=== PATIENT | male | born 1980 | race African-American/Black ===

== ENCOUNTER 2020-04-09 12:20 | Observation (INO) | payer BC ==
[~2020-04-09] VITALS: Ht 182.9 cm; Wt 95.3 kg
[2020-04-09] MEDS ORDERED: PANTOPRAZOLE 40 MG 10ML VIAL IV NR (12:33)
[2020-04-09] MEDS ORDERED: SODIUM CHLORIDE 0.9% 1000ML 1,000 ML IV STA (13:05)
[2020-04-09] MEDS ORDERED: DICYCLOMINE HCL 20 MG/2 ML VIAL IM ONE (13:15)
[2020-04-09] MEDS ORDERED: KETOROLAC TROMETHAMINE 30 MG/ML VIAL IV NR (13:30)
[2020-04-09 13:39] LABS: ALANINE AMINOTRANSFERASE 21 IU/L (0-55); ALBUMIN 3.3 g/dL (3.5-5.0); ALBUMIN/GLOBULIN RATIO 0.7 (0.8-2.0); ALKALINE PHOSPHATASE 57 IU/L (40-150); AMYLASE 52 U/L (25-125); BLOOD UREA NITROGEN 15 mg/dL (7-26); BUN/CREATININE RATIO 11 (6-25); CALCIUM 9.5 mg/dL (8.4-10.2); CARBON DIOXIDE 24 mmol/L (22-29); CHLORIDE 100 mmol/L (98-107); CREATINE KINASE 57 IU/L (30-200); EST GLOMERULAR FILTRATION RATE > 60 ML/MIN (60-); GLUCOSE 111 mg/dL (74-118); LIPASE 27 U/L (8-78); SODIUM 134 mmol/L (136-145)
[2020-04-09 13:57] LABS: BASOPHILS % 0.2 % (0.0-1.0); EOSINOPHILS % 0.1 % (0.0-6.0); HEMOGLOBIN 11.9 g/dL (14.0-18.0); LYMPHOCYTES # (AUTO) 1.1 (1.0-3.2); LYMPHOCYTES % 9.2 % (18.0-39.1); MEAN CORPUSCULAR HGB CONC 33.1 g/dL (31-35); MEAN CORPUSCULAR VOLUME 72.6 fL (81-99); MONOCYTES # (AUTO) 1.3 (0.2-0.8); MONOCYTES % 10.4 % (4.4-11.3); NEUTROPHILS # (AUTO) 9.8 (2.1-6.9); NEUTROPHILS % 79.7 % (38.7-80.0); PLATELET COUNT 167 x10e3/uL (140-360); RED BLOOD COUNT 4.96 x10e6/uL (4.3-5.7); RED CELL DISTRIBUTION WIDTH 20.5 % (11.7-14.4)
[2020-04-09 14:17] LABS: COLOR,URINE YELLOW (YELLOW)
[2020-04-09 14:18] LABS: CLARITY,URINE CLEAR (CLEAR); LEUKOCYTE ESTERASE ,URINE NEGATIVE (NEGATIVE); NITRITE,URINE NEGATIVE (NEGATIVE); PROTEIN,URINE DIPSTICK >=300 (NEGATIVE)
[2020-04-09 14:19] LABS: KETONES,URINE 1+ (NEGATIVE)
[2020-04-09 14:29] LABS: BACTERIA,URINE RARE /HPF; RBC,URINE 0-5 /HPF (0-5)
[2020-04-09 15:45] LABS: PLATELET ESTIMATE ADEQUATE; PLATELET MORPHOLOGY COMMENT FEW EDTA CLUMPING; POIKILOCYTOSIS SLIGHT; RBC MORPHOLOGY COMMENT NORMAL
[2020-04-09] MEDS: PIPER-TAZ 3.375 GM 50 ML IV SCH (17:46)
[2020-04-09] MEDS: SODIUM CHLORIDE 0.9% 1000ML 1,000 ML IV SCH (17:46)
[2020-04-09 20:00] VITALS: BP 130/70
[2020-04-10] VITALS (7 sets, daily range): BP systolic 114–128; BP diastolic 69–84
[2020-04-10] MEDS: PIPER-TAZ 3.375 GM 50 ML IV SCH ×4 (00:15→18:35)
[2020-04-10] MEDS: SODIUM CHLORIDE 0.9% 1000ML 1,000 ML IV SCH ×3 (03:27→17:28)
[2020-04-10 06:27] LABS: ALANINE AMINOTRANSFERASE 23 IU/L (0-55); ALBUMIN 2.7 g/dL (3.5-5.0); ALBUMIN/GLOBULIN RATIO 0.7 (0.8-2.0); ALKALINE PHOSPHATASE 49 IU/L (40-150); BLOOD UREA NITROGEN 15 mg/dL (7-26); BUN/CREATININE RATIO 13 (6-25); CARBON DIOXIDE 19 mmol/L (22-29); CHLORIDE 105 mmol/L (98-107); CREATININE, SERUM 1.13 mg/dL (0.72-1.25); EST GLOMERULAR FILTRATION RATE > 60 ML/MIN (60-); GLUCOSE 93 mg/dL (74-118); SODIUM 135 mmol/L (136-145)
[2020-04-10 06:31] LABS: ANION GAP 15.7 mmol/L (8-16); POTASSIUM 4.7 mmol/L (3.5-5.1)
[2020-04-10 07:47] LABS: BASOPHILS % 0.2 % (0.0-1.0); EOSINOPHILS % 0.6 % (0.0-6.0); HEMOGLOBIN 15.3 g/dL (14.0-18.0); LYMPHOCYTES # (AUTO) 0.6 (1.0-3.2); LYMPHOCYTES % 12.4 % (18.0-39.1); MEAN CORPUSCULAR HEMOGLOBIN 24.3 pg (28-32); MEAN CORPUSCULAR VOLUME 71.4 fL (81-99); MONOCYTES # (AUTO) 0.5 (0.2-0.8); MONOCYTES % 10.5 % (4.4-11.3); NEUTROPHILS # (AUTO) 3.6 (2.1-6.9); NEUTROPHILS % 75.7 % (38.7-80.0); PLATELET COUNT 167 x10e3/uL (140-360); RED CELL DISTRIBUTION WIDTH 20.5 % (11.7-14.4)
[2020-04-10] MEDS ORDERED: ACETAMINOPHEN 325 MG TAB PO PRN (08:00)
[2020-04-10] MEDS ORDERED: HYDRALAZINE HCL 20 MG/ML VIAL IV PRN (08:00)
[2020-04-10] MEDS ORDERED: BUPIVACAINE 0.25% 30ML SDV ONE (08:44)
[2020-04-10] MEDS ORDERED: ACETAMINOPHEN 1000 MG/100 ML 100 ML IV ONE (09:05)
[2020-04-10] MEDS ORDERED: MIDAZOLAM HCL 2 MG/2 ML VIAL ONE (09:06)
[2020-04-10] MEDS ORDERED: FENTANYL CITRATE/PF 100MCG/2 ML INJ ONE (09:06)
[2020-04-10] MEDS: MORPHINE SULFATE INJ 2 MG/ML SYR IV PRN ×4 (12:06→22:29)
[2020-04-10] MEDS: ONDANSETRON HCL INJ 2MG/ML 2ML 2 MG/ML VIAL IV PRN ×2 (12:07→15:25)
[2020-04-10] MEDS ORDERED: LABETALOL HCL 5 MG/ML 20ML VIAL ONE (12:24)
[2020-04-10] MEDS ORDERED: LIDOCAINE HCL 2% LOCAL INJ 5 ML SDV VIAL INJ ONE (12:24)
[2020-04-10] MEDS ORDERED: DESFLURANE 240 ML BTL INH ONE (12:24)
[2020-04-10] MEDS ORDERED: ROCURONIUM BROMIDE 10 MG/ML 5ML VIAL IV ONE (12:24)
[2020-04-10] MEDS ORDERED: NEOSTIGMINE 1 MG/ML 10ML VIAL ONE (12:24)
[2020-04-10] MEDS ORDERED: PROPOFOL IV EMULSION 10 MG/ML 20 ML VIAL ONE (12:24)
[2020-04-10] MEDS ORDERED: GLYCOPYRROLATE INJ 0.2 MG/ML VIAL ONE (12:24)
[2020-04-10] MEDS ORDERED: ONDANSETRON HCL INJ 2MG/ML 2ML 2 MG/ML VIAL ONE (12:24)
[2020-04-10] MEDS ORDERED: DEXAMETHASONE SOD PHOS INJ 4 MG/ML VIAL ONE (12:24)
[2020-04-10] MEDS: FAMOTIDINE 20 MG/2 ML VIAL IV SCH (15:24)
[2020-04-10] MEDS ORDERED: CHLORASEPTIC SPRAY 177 ML BTL MM PRN (17:30)
[2020-04-11] VITALS: BP 128/79
[2020-04-11] MEDS: PIPER-TAZ 3.375 GM 50 ML IV SCH ×3 (00:06→12:00)
[2020-04-11] MEDS: MORPHINE SULFATE INJ 2 MG/ML SYR IV PRN ×2 (01:38→04:43)
[2020-04-11] MEDS: SODIUM CHLORIDE 0.9% 1000ML 1,000 ML IV SCH ×2 (01:47→08:20)
[2020-04-11 04:00] VITALS: BP 128/79
[2020-04-11 07:03] LABS: BASOPHILS % 0.1 % (0.0-1.0); EOSINOPHILS % 0.1 % (0.0-6.0); HEMATOCRIT 30.2 % (38.2-49.6); HEMOGLOBIN 9.9 g/dL (14.0-18.0); LYMPHOCYTES # (AUTO) 1.2 (1.0-3.2); LYMPHOCYTES % 11.3 % (18.0-39.1); MEAN CORPUSCULAR HEMOGLOBIN 23.9 pg (28-32); MEAN CORPUSCULAR HGB CONC 32.8 g/dL (31-35); MEAN CORPUSCULAR VOLUME 72.8 fL (81-99); MONOCYTES # (AUTO) 1.2 (0.2-0.8); MONOCYTES % 10.8 % (4.4-11.3); NEUTROPHILS # (AUTO) 8.5 (2.1-6.9); NEUTROPHILS % 77.2 % (38.7-80.0); PLATELET COUNT 247 x10e3/uL (140-360); RED BLOOD COUNT 4.15 x10e6/uL (4.3-5.7); RED CELL DISTRIBUTION WIDTH 20.7 % (11.7-14.4)
[2020-04-11 07:36] LABS: ALANINE AMINOTRANSFERASE 69 IU/L (0-55); ALBUMIN 2.7 g/dL (3.5-5.0); ALBUMIN/GLOBULIN RATIO 0.7 (0.8-2.0); ALKALINE PHOSPHATASE 79 IU/L (40-150); ANION GAP 11.4 mmol/L (8-16); BLOOD UREA NITROGEN 12 mg/dL (7-26); BUN/CREATININE RATIO 9 (6-25); CALCIUM 8.9 mg/dL (8.4-10.2); CARBON DIOXIDE 25 mmol/L (22-29); CHLORIDE 104 mmol/L (98-107); CREATININE, SERUM 1.29 mg/dL (0.72-1.25); EST GLOMERULAR FILTRATION RATE > 60 ML/MIN (60-); GLUCOSE 131 mg/dL (74-118); POTASSIUM 4.4 mmol/L (3.5-5.1); SODIUM 136 mmol/L (136-145)
[2020-04-11 07:43] VITALS: BP 119/72
[2020-04-11] MEDS ORDERED: ZOFRAN4 MG PO (07:52)
[2020-04-11] MEDS ORDERED: TYLENOL # 31 EA PO (07:52)
[2020-04-11] MEDS ORDERED: MORPHINE SULFATE INJ 2 MG/ML SYR IV STA (07:54)
[2020-04-11] MEDS ORDERED: MORPHINE SULFATE INJ 2 MG/ML SYR IV PRN (08:00)
[2020-04-11] MEDS ORDERED: ACETAMINOPHEN/CODEINE 300MG - 30MG TAB PO PRN (08:00)
[2020-04-11] MEDS: FAMOTIDINE 20 MG/2 ML VIAL IV SCH (08:19)
[2020-04-11 08:43] VITALS: BP 119/72
[2020-04-11 11:47] VITALS: BP 132/81
[2020-04-11 15:47] VITALS: BP 140/81
== END 2020-04-11 17:55 | disposition home or self-care (01) ==
LOC: ER 12:30 → ERHOLD 16:41 → INTOOBSV 16:41 → MED/SURG 19:46
PROVIDERS: ADMIT Internal Medicine; ATTEND Internal Medicine
DX: K80.00 Calculus of gallbladder with acute cholecystitis without obstruction (principal); K82.8 Other specified diseases of gallbladder; F41.9 Anxiety disorder, unspecified; R50.9 Fever, unspecified; Z20.822 Contact with and (suspected) exposure to COVID-19
CPT/HCPCS: 36415 ×3; 47562; 76705; 80053 ×3; 81001; 82150; 82550; 82553; 83690; 84484; 85025 ×3; 87086; 88304; 93005; 99284; C9113; G0378 ×3; J0131; J0500; J1100; J1885; J2001; J2250; J2270 ×2; J2405 ×2; J2543 ×3; J2704; J2710; J3010; J3490; J7030 ×3; U0002